=== PATIENT | female | born 1965 | race Caucasian/White ===

== ENCOUNTER 2016-12-12 22:53 | Emergency (ER) | payer BC ==
--- NOTE | 2016-12-12 23:09 | Emergency Department Record ---
History of Present Illness - General Chief Complaint: Numbness Stated Complaint: LT ARM & LT LEG NUMB Time Seen by Provider: 12/12/16 22:55 Source: Patient Mode of Arrival: Wheelchair Limitations: No limitations - History of Present Illness Initial Comments: 51 yo female presents to ED with a CC of bilateral thigh "spasms" and pain that began 30 minutes prior to arrival. Patient also reports numbness to the LUE and LLE. Patient reports that she was getting into bed when her symptoms began. Patient denies focal weakness on examination, change in vision, or change in speech. Patient denies recent illness and denies history of HTN, IDDM , or cardiac disease. Onset/Timin -: Minutes(s) Location: Left leg, Right leg History of same: No Place: Home Severity: Moderate Improves With: None Worsens With: None On Anticoagulants: No Associated Symptoms: Denies other symptoms Treatments Prior to Arrival: None - Adelina Coma Scale Eye Response: (4) Open spontaneously Motor Response: (6) Obeys commands Verbal Response: (5) Oriented Adelina Total: 15 - Related Data Home Medications: Previous Rx's Medication Instructions Recorded Cyclobenzaprine HCl [Flexeril] 10 mg PO TID #30 tablet 07/03/14 Naproxen [Naprosyn] 500 mg PO Q12H #30 tab. 12/13/16 Allergies/Adverse Reactions: Allergies Allergy/AdvReac Type Severity Reaction Status Date / Time No Known Drug Allergies Allergy Verified 07/03/14 09:27 Travel Screening - Travel/Exposure Within Last 30 Days Have you traveled within the last 30 days?: No - Travel/Exposure Within Last Year Have you traveled outside the [place] in the last year?: No - Additonal Travel Details Have you been exposed to anyone with a communicable illness?: No - Travel Symptoms Symptom Screening: None Review of Systems Constitutional: Denies: Chills, Fever, Malaise, Night sweats Eyes: Denies: Eye discharge, Eye pain ENT: Denies: Congestion, Ear pain, Epistaxis Respiratory: Denies: Cough, Dyspnea Cardiovascular: Denies: Chest pain, Dyspnea on exertion Endocrine: Denies: Fatigue, Heat or cold intolerance Gastrointestinal: Denies: Abdominal pain, Nausea, Vomiting Genitourinary: Denies: Incontinence, Retention Musculoskeletal: Reports: Myalgia. Denies: Arthralgia, Back pain, Gout, Joint swelling Skin: Denies: Bruising, Change in color Neurological: Reports: Numbness. Denies: Abnormal gait, Confusion, Headache, Seizure Psychiatric: Denies: Anxiety Hematological/Lymphatic: Denies: Anemia, Blood Clots Past Medical History - SOCIAL HISTORY Smoking Status: Former smoker Alcohol Use: None Drug Use: None - RESPIRATORY Hx Respiratory Disorders: Yes Hx COPD: Yes - CARDIOVASCULAR Hx Cardio Disorders: No - NEURO Hx Neuro Disorders: Yes Hx Headaches: Yes - GI Hx GI Disorders: No - Hx Genitourinary Disorders: Yes Comment:: Excessive Vaginal Bleeding during periods - ENDOCRINE Hx Endocrine Disorders: Yes Hx Thyroid Disease: Yes - MUSCULOSKELETAL Hx Musculoskeletal Disorders: No - PSYCH Hx Psych Problems: No - HEMATOLOGY/ONCOLOGY Hx Hematology/Oncology Disorders: Yes Hx Anemia: Yes (Related to bleeding on periods) Family Medical History Any Significant Family History?: No Hx Cancer: Father *Cancer Comment: bone ca, aunt Breast ca Physical Exam - General General Appearance: Alert, Oriented x3, Cooperative, Moderate distress Limitations: No limitations - Head Head exam: Atraumatic, Normocephalic, Normal inspection Head exam detail: negative: Abrasion, Contusion, Abarca's sign, General tenderness, Hematoma, Laceration - Eye Eye exam: Normal appearance. negative: Conjunctival injection, Periorbital swelling, Periorbital tenderness, Scleral icterus - ENT Ear exam: negative: Auricular hematoma, Auricular trauma Nasal Exam: negative: Active bleeding, Discharge, Dried blood, Foreign body Mouth exam: negative: Drooling, Laceration, Muffled voice, Tongue elevation - Neck Neck exam: Normal inspection. negative: Meningismus, Tenderness - Respiratory Respiratory exam: Normal lung sounds bilaterally. negative: Rales, Respiratory distress, Rhonchi, Stridor - Cardiovascular Cardiovascular Exam: Regular rate, Normal rhythm, Normal heart sounds - GI/Abdominal GI/Abdominal exam: Soft. negative: Rebound, Rigid, Tenderness - Rectal Rectal exam: Deferred - exam: Deferred - Extremities Extremities exam: Normal inspection, Tenderness, Other (TTP along the anterior thighs bilaterally). negative: Calf tenderness, Pedal edema - Back Back exam: Denies: CVA tenderness (R), CVA tenderness (L), Paraspinal tenderness - Neurological Neurological exam: Alert, CN II-XII intact, Oriented X3, Other (EHL strength 5/ 5 and symmetric bilterally, bead filler strength 5/5 and symmetric bilaterally). negative: Motor sensory deficit - Psychiatric Psychiatric exam: Normal affect, Normal mood - Skin Skin exam: Normal color. negative: Abrasion Type of lesion: negative: abrasion Course Vital Signs 12/12/16 22:54 Temperature 97.9 F Pulse Rate 104 H Respiratory 20 Rate Blood Pressure 136/76 Pulse Ox 98 - Reevaluation(s) Reevaluation #1: 12/12/16 23:10 NSR 97 Normal axis, normal intervals Nonspecific ST-T wave changes are present. Reevaluation #2: 12/13/16 00:08 Labs reviewed and are grossly unremarkable for an acute process. Patient is back from CT, reports that she is feeling much better following Valium administration. Patient has no clinical evidence for an acute CVA on examination and NIH stroke scale is 0. Awaiting CTA interpretation. Reevaluation #3: 12/13/16 00:37 CTA Chest/Abdomen/Pelvis: No dissection, Cholelithiasis, diverticulosis, fat containing abdominal wall hernias. Patient reassessed and NIH stroke scale continues to be 0. Patient has ambulated to the bathroom with steady gait and appears stable for discharge at this time. Medical Decision Making - Lab Data Result diagrams: 12/12/16 23:10 12/12/16 23:10 Disposition Disposition: Discharge Clinical Impression: Muscle spasms of lower extremity Qualifiers: Laterality: bilateral Qualified Code(s): M62.838 - Other muscle spasm Disposition: Home, Self-Care Condition: (2) Stable Instructions: Muscle Spasm (ED) Additional Instructions: Return to ED if your symptoms worsen or if you have any concerns. Naprosyn as directed. Follow-up with your family doctor in 1-3 days as directed. Prescriptions: Naproxen [Naprosyn] 500 mg PO Q12H #30 tab.dr Forms: Patient Portal Access Time of Disposition: 00:45 Quality - Quality Measures Quality Measures: N/A - Blood Pressure Screening Does Patient Have Any of the Following: No Blood Pressure Classification: Pre-Hypertensive BP Reading Systolic Measurement: 136 Diastolic Measurement: 76 Screening for High Blood Pressure: < Pre-Hypertensive BP, F/U Documented > [ G8950] Pre-Hypertensive Follow-up Interventions: Referral to alternative/primary care provider.
[2016-12-12 23:15] LABS: BASO % 0.5 % (0-6); EOS % 2.7 % (0-6); GRAN % 55.7 % (47-80); HEMATOCRIT 38.8 % (35.0-47.0); HEMOGLOBIN 13.1 gm/dl (11.6-16.0); LYMPH % 32.8 % (16-45); MEAN CELL VOLUME 84.5 fl (81-97); MEAN CORPUSCULAR HEMOGLOBIN 28.5 pg (27-33); MEAN CORPUSCULAR HGB CONC 33.8 g/dl (32-36); MEAN PLATELET VOLUME 9.6 fl (7.4-10.4); MONO % 8.3 % (0-9); PLATELET COUNT 290 K/uL (130-400); RED BLOOD COUNT 4.59 M/uL (3.80-5.40); RED CELL DISTRIBUTION WIDTH 13.3 % (11.5-14.5); WHITE BLOOD COUNT W/O DIFF 8.6 K/uL (4.2-12.2)
[2016-12-12] MEDS: 0.9 % SODIUM CHLORIDE 1000ML 1,000 ML IV SCH (23:18)
[2016-12-12] MEDS: DIAZEPAM 5 MG/1 ML TUBX IVP ONE (23:19)
[2016-12-12] MEDS: ONDANSETRON HCL IV 4 MG/2 ML VIAL IVP ONE (23:23)
[2016-12-12 23:27] LABS: ALB/GLOB RATIO 1.5 (1.1-1.8); ALKALINE PHOSPHATASE 65 U/L (38-126); ALT/SGPT 40 U/L (9-52); ANION GAP 7.1 (7-16); AST/SGOT 23 U/L (14-36); BILIRUBIN,TOTAL 0.52 mg/dL (0.2-1.3); BLOOD UREA NITROGEN 11 mg/dL (7-17); CARBON DIOXIDE 27.9 mmol/L (22-30); CREATINE PHOSPHOKINASE 113 U/L (30-135); CREATININE 0.7 mg/dL (0.52-1.04); EST GLOMERULAR FILTRATION RATE > 60 ml/min; GLUCOSE,RANDOM 90 mg/dL (70-110); INR 0.92; PROTHROMBIN TIME (PATIENT) 9.9 SECONDS (9.5-12.1); TOTAL PROTEIN 6.7 gm/dL (6.3-8.2)
[2016-12-12 23:39] LABS: CKMB 1.4 ug/L (0-6); TROPONIN I < 0.012 ng/mL (0.00-0.034)
--- NOTE | 2016-12-13 14:20 | CT ANGIOGRAM REPORT ---
EXAM: CTA OF THE CHEST AND ABDOMEN HISTORY: PATIENT HAS NUMBNESS OF THE LEFT ARM AND BOTH LEGS. PATIENT HAS PAIN AND CRAMPING TO THE THIGHS. TECHNIQUE: Serial axial CTA scan of the chest and abdomen was done at 5 mm intervals from the aortic arch to the aortic bifurcation without the use of intravenous contrast. Subsequently serial axial CTA scan of the chest was performed at 2.5 mm intervals from the aortic arch to the aortic bifurcation following the intravenous administration of 100 ml of Omnipaque 350. Comparison: CT scan of the abdomen and pelvis dated 05/13/12 is provided. FINDINGS: The visualized thoracic inlet is unremarkable. The lung windows of the visualized lung ashby demonstrate linear subsegmental atelectasis and/or scarring within the bilateral lower lobes. The visualized heart size and contour is within normal limits. There is no CT evidence of axillary, mediastinal, or hilar lymphadenopathy. Nonspecific subcentimeter lymph nodes are identified within the bilateral axilla. These may be reactive. The chest wall is unremarkable. The liver demonstrates diffuse fatty infiltration. No suspicious hepatic lesions are identified. The size and contour of the liver is within normal limits. The spleen, pancreas, and bilateral adrenal glands are unremarkable. A gallstone is noted within the gallbladder without CT evidence of cholecystitis. There is no CT evidence of hydronephrosis or hydroureter. No renal or ureteral calculi are noted. The contour, caliber, and flow within the thoracic and abdominal aorta are within normal limits. There is no CT evidence of retroperitoneal, pelvic, or inguinal lymphadenopathy. The bowel gas pattern is nonspecific and nonobstructive. Multiple colonic diverticula are noted without CT evidence of diverticulitis. Within the anterior abdominal wall, there is a 3.4 cm umbilical hernia with herniated omental fat. Mild fat stranding is noted within this umbilical hernia suggesting possible mild strangulation. Clinical correlation is recommended. This finding appears similar to the prior CT scan. There is no CT evidence of free intraperitoneal fluid or free intraperitoneal air. Bone windows demonstrate bilateral L5 pars lamina defects with Grade 1 spondylolisthesis at the L5-S1 disk space level. IMPRESSION: 1. NO CT EVIDENCE OF AORTIC STENOSIS, DISSECTION OR ANEURYSM. 2. UMBILICAL HERNIA IS NOTED DISCUSSED ABOVE. POSSIBLE MILD STRANGULATION OF OMENTAL FAT IS NOTED. CLINICAL CORRELATION IS RECOMMENDED. 3. A GALLSTONE IS NOTED WITHOUT CT EVIDENCE OF CHOLECYSTITIS. 4. DIFFUSE HEPATIC STEATOSIS. JOB NUMBER: [id number] [facility]
== END 2016-12-13 00:54 | disposition home or self-care (01) ==
LOC: ER 22:53
DX: M62.838 Other muscle spasm (principal); M79.652 Pain in left thigh; M79.651 Pain in right thigh; R20.0 Anesthesia of skin; R29.898 Other symptoms and signs involving the musculoskeletal system
CPT/HCPCS: 99284 ×2; 96374; 96375; 82550; 85025; 85610; 82553; 84484; 80053; 71275; 74175; 93005; 93010; Q9967; J2405; J3360; J7030

== ENCOUNTER 2017-04-30 09:42 | Emergency (ER) | payer BC ==
--- NOTE | 2017-04-30 09:56 | Emergency Department Record ---
History of Present Illness - General Chief Complaint: Abdominal Pain Stated Complaint: ABD PAIN Time Seen by Provider: 04/30/17 09:52 Source: Patient Mode of Arrival: Ambulatory Limitations: No limitations - History of Present Illness Initial Comments: The patient is here due to upper abdominal pain for 4 hours associated with nausea. She denies any vomiting, fever, diarrhea, or back pain. The patient describes the pain as a sharp crampy pain that waxes and wanes. She has had similar problems in the pat but they always have resolved. The patient's only abdominal surgery is a ELEANOR. MD Complaint: Abdominal pain Onset/Timin -: Hour(s) Location: Epigastric Radiation: None Migration to: No migration Severity: Moderate Quality: Cramping Consistency: Constant Improves With: Nothing Worsens With: Nothing Associated Symptoms: Nausea - Related Data Patient : No Previous Rx's Medication Instructions Recorded Cyclobenzaprine HCl [Flexeril] 10 mg PO TID #30 tablet 07/03/14 Hydrocodone/Acetaminophen [[place] 1 - 2 each PO .EVERY 4-6 HRS PRN 04/30/17 5-325 Tablet] #20 tablet Ondansetron [Zofran Odt] 4 mg SL .Q4-6H PRN #12 tab.rapdis 04/30/17 Sucralfate [Carafate] 1 gm PO QID #28 tablet 04/30/17 Allergies Allergy/AdvReac Type Severity Reaction Status Date / Time No Known Drug Allergies Allergy Verified 04/30/17 09:51 Travel Screening - Travel/Exposure Within Last 30 Days Have you traveled within the last 30 days?: No Review of Systems Constitutional: Denies: Chills, Fever Eyes: Denies: Eye discharge ENT: Denies: Congestion Respiratory: Denies: Cough, Dyspnea Past Medical History - SOCIAL HISTORY Smoking Status: Former smoker Alcohol Use: None Drug Use: None - RESPIRATORY Hx Respiratory Disorders: Yes Hx COPD: Yes - CARDIOVASCULAR Hx Cardio Disorders: No - NEURO Hx Neuro Disorders: Yes Hx Headaches: Yes - GI Hx GI Disorders: Yes Hx Abdominal Pain: Yes - Hx Genitourinary Disorders: No - ENDOCRINE Hx Endocrine Disorders: Yes Hx Thyroid Disease: Yes - MUSCULOSKELETAL Hx Musculoskeletal Disorders: No - PSYCH Hx Psych Problems: No - HEMATOLOGY/ONCOLOGY Hx Hematology/Oncology Disorders: Yes Hx Anemia: Yes Family Medical History Any Significant Family History?: Yes Hx Cancer: Father *Cancer Comment: bone ca, aunt Breast ca Physical Exam - General General Appearance: Alert, Oriented x3, Cooperative, No acute distress - Head Head exam: Atraumatic - Eye Eye exam: Normal appearance, PERRL Pupils: Normal accommodation - Neck Neck exam: Normal inspection, Full ROM. negative: Tenderness - Respiratory Respiratory exam: Normal lung sounds bilaterally. negative: Respiratory distress - Cardiovascular Cardiovascular Exam: Regular rate, Normal rhythm, Normal heart sounds - GI/Abdominal GI/Abdominal exam: Soft, Tenderness (There is tenderness to palpation in the upper abdomen and mildly in the RUQ. The patient is morbidly obese.). negative : Guarding, Pulsatile mass, Rebound, Rigid - Extremities Extremities exam: Normal inspection, Full ROM, Normal capillary refill. negative: Tenderness - Neurological Neurological exam: Alert, Normal gait. negative: Abnormal gait, Motor sensory deficit Course Vital Signs 04/30/17 09:46 Temperature 97.9 F Pulse Rate 107 H Respiratory 20 Rate Blood Pressure 103/82 Pulse Ox 97 - Reevaluation(s) Reevaluation #1: The patient is doing a lot better at this time. She denies any nausea and states her pain is much improved. On exam her abdomen is very soft with only very minimal tenderness. I did explain the lab work and US report and the need for F/U with a General Surgeon. I did discuss the case with Dr. Mancia (GEN SURG ) and he would like to see the patient in the office tomorrow morning at 8am. 04/30/17 12:24 Medical Decision Making - Data Complexity MDM Data: Labs Ordered and/or Reviewed, X-Ray Ordered and/or Reviewed - Lab Data Result diagrams: 04/30/17 10:08 04/30/17 10:08 - Radiology Data Radiology results: Report reviewed (US: 1.3 cm gallstone nonmobile in the neck of the GB. No signs of any acute cholycysitis.) Disposition Disposition: Discharge Clinical Impression: Gallstone (impacted) Disposition: Home, Self-Care Condition: (2) Stable Instructions: Abdominal Pain (ED) Additional Instructions: Please drink plenty of fluids and only eat a very bland diet with no fatty or fried foods. Please see Dr. Mancia tomorrow morning at 8am in his office at [address] [place] [address], [address]. [place]. Return to the ER sooner for any increased pain, vomiting, or fever. Prescriptions: Hydrocodone/Acetaminophen [[place] 5-325 Tablet] 1 - 2 each PO .EVERY 4-6 HRS PRN #20 tablet PRN Reason: Pain Ondansetron [Zofran Odt] 4 mg SL .Q4-6H PRN #12 tab.rapdis PRN Reason: Nausea Sucralfate [Carafate] 1 gm PO QID #28 tablet Forms: Patient Portal Access Time of Disposition: 12:28 Quality - Quality Measures Quality Measures: N/A - Blood Pressure Screening View Details: Yes Does Patient Have Any of the Following: No, Active Dx of HTN Blood Pressure Classification: Hypertensive Reading Systolic Measurement: 132 Diastolic Measurement: 105 Screening for High Blood Pressure: Patient Exclusion, Hx of HTN [G9744]
[2017-04-30] MEDS ORDERED: SODIUM CHLORIDE 0.9% 500 ML IV ONE (09:58)
[2017-04-30] MEDS ORDERED: ONDANSETRON HCL IV 4 MG/2 ML VIAL IV ONE (09:58)
[2017-04-30] MEDS ORDERED: HYDROMORPHONE HCL 1 MG/ML SYRINGE IVP ONE ×2 (09:59→10:16)
[2017-04-30 10:22] LABS: BASO % 0.4 % (0-6); EOS % 2.2 % (0-6); GRAN % 62.7 % (47-80); HEMATOCRIT 42.1 % (35.0-47.0); HEMOGLOBIN 13.8 gm/dl (11.6-16.0); LYMPH % 29.5 % (16-45); MEAN CELL VOLUME 85.2 fl (81-97); MEAN CORPUSCULAR HEMOGLOBIN 27.9 pg (27-33); MEAN CORPUSCULAR HGB CONC 32.8 g/dl (32-36); MEAN PLATELET VOLUME 9.5 fl (7.4-10.4); MONO % 5.2 % (0-9); PLATELET COUNT 315 K/uL (130-400); RED BLOOD COUNT 4.94 M/uL (3.80-5.40); RED CELL DISTRIBUTION WIDTH 13.6 % (11.5-14.5); WHITE BLOOD COUNT W/O DIFF 7.8 K/uL (4.2-12.2)
[2017-04-30 10:37] LABS: BLOOD UREA NITROGEN 11 mg/dL (6-20); CREATININE 0.5 mg/dL (0.5-0.9); EST GLOMERULAR FILTRATION RATE > 60 mL/min
[2017-04-30 10:38] LABS: TOTAL PROTEIN 7.5 g/dL (6.6-8.7)
[2017-04-30 10:40] LABS: GLUCOSE,RANDOM 118 mg/dL (74-109)
[2017-04-30 10:42] LABS: ALBUMIN 4.1 g/dL (4.0-5.0); ALT/SGPT 26 U/L (<33); AST/SGOT 24 U/L (10.0-35.0)
[2017-04-30 10:43] LABS: ALKALINE PHOSPHATASE 85 U/L (35-104); LIPASE 16 U/L (13-60)
[2017-04-30 10:49] LABS: BILIRUBIN,DIRECT < 0.2 mg/dL (0-0.3)
[2017-04-30] MEDS ORDERED: MAGNESIUM HYDROXIDE/AL HYDROX 30 ML, LIDOCAINE VISC 2% 200 MG PO ONE ×2 (10:59)
--- NOTE | 2017-05-01 07:53 | ULTRASOUND REPORT ---
EXAM: ULTRASOUND OF THE ABDOMEN LIMITED HISTORY: UPPER ABDOMINAL PAIN. TECHNIQUE: Ultrasound examination of the right upper quadrant was performed. Comparison: CT angiogram of the abdomen dated 12/12/16. FINDINGS: The liver is homogeneous in echotexture. No gross intra or extrahepatic biliary ductal dilatation with the common hepatic duct measuring 2 mm. There is a nonmobile calculus in the gallbladder neck measuring 1.3 cm in diameter. No gross gallbladder wall thickening or pericholecystic fluid. IMPRESSION: NONMOBILE 1.3 CM CALCULUS WITHIN THE GALLBLADDER NECK WITHOUT GROSS GALLBLADDER WALL THICKENING OR PERICHOLECYSTIC FLUID NOR GALLBLADDER WALL THICKENING. JOB NUMBER: [id number] [facility]
== END 2017-04-30 12:47 | disposition home or self-care (01) ==
LOC: ER 09:42
DX: K80.20 Calculus of gallbladder without cholecystitis without obstruction (principal); R11.0 Nausea
CPT/HCPCS: 76705; 80048; 80076; 83690; 85025; 96374; 96375; 99284; J1170; J2405

== ENCOUNTER 2017-05-06 09:56 | Day surgery (SDC) | payer BC ==
[~2017-05-06 09:56] MED LIST: ACETAMINOPHEN 1,000 MG/100 ML BTL IV ONE; FAMOTIDINE 20MG TABLET PO ONE; MECLIZINE 25 MG TABLET PO ONE; METOCLOPRAMIDE 10 MG TABLET PO ONE
[2017-05-06] MEDS ORDERED: HYDROCODONE/APAP 5/325MG TABLET PO ONE (09:57)
[2017-05-06] MEDS ORDERED: BUPIVACAINE 0.75% W/EPI MPF 30ML VIAL IVP ONE (09:57)
[2017-05-06] MEDS ORDERED: SEVOFLURANE 250 ML INH ONE (14:41)
[2017-05-06] MEDS ORDERED: DEXAMETHASONE 4 MG/ML 1ML VIAL IVP ONE (14:41)
[2017-05-06] MEDS ORDERED: SUGAMMADEX SODIUM 200 MG/2 ML VIAL IV ONE (14:41)
[2017-05-06] MEDS ORDERED: PROPOFOL 10 MG/ML VIAL IV ONE (14:41)
[2017-05-06] MEDS ORDERED: ROCURONIUM BROMIDE 50MG/5ML VIAL IV ONE (14:41)
[2017-05-06] MEDS ORDERED: KETOROLAC 30 MG/ML VIAL IVP ONE (14:41)
[2017-05-06] MEDS ORDERED: ONDANSETRON HCL IV 4 MG/2 ML VIAL IVP ONE (14:41)
--- NOTE | 2017-05-07 09:50 | Operative Note ---
DATE OF SURGERY: 05/06/2017 Surgeon: Murtaza Mancia DO PREOPERATIVE DIAGNOSIS: Cholelithiasis, cholecystitis. POSTOPERATIVE DIAGNOSIS: Cholelithiasis, cholecystitis. OPERATION: Laparoscopic cholecystectomy. Indication: The patient is a 52-year-old female who presented to the clinic with pain in the right subcostal region. Imaging studies did reveal a 1.3 cm stone stuck in the neck of her gallbladder. We did discuss cholecystectomy versus medical management. She desired surgical intervention. Risks include but are not limited to bleeding, infection, ductal injury, possible conversion to open, postoperative bile leak. She understood this fully. PROCEDURE: Therefore, after consent was signed and questions answered, she was taken to the operating room and placed in a supine position. General anesthesia was administered per the department of anesthesia. The patient's abdomen was prepped and draped in the usual sterile fashion. The supraumbilical region was anesthetized with a total of 3 mL of 0.25% Sensorcaine with epinephrine. An incision was made. This was carried down to actually what was a supraumbilical hernia. Clean circumferential fascial edges were obtained. Stay sutures were placed on the fascial edges. Through the hernia, a 10 mm Isabel port was then placed. Adequate pneumoperitoneum was established. Under direct visualization, additional 5 mm epigastric and two 5 mm right subcostal ports were placed. The patient was then rotated into reverse Trendelenburg with rotation to left. The gallbladder was identified. It was lifted anteriorly. Dense omental adhesions were taken down. The hepatocystic triangle was thoroughly dissected out. There was no aberrant anatomy, no posterior ductal structures. The cystic duct and cystic artery were clearly identified. Each one was doubly clipped and cut in a standard fashion. Gallbladder was then taken off the liver bed with the Shai harmonic. Right upper quadrant was rechecked and found to be hemostatic. No bleeding. No bile leak. No bowel injury noted. The patient was leveled out. The pneumoperitoneum was released. All ports were removed. The fascia was closed with 0 Vicryl in a [id number] fashion. The skin of all ports was closed with 4-0 Vicryl. The patient was taken to the recovery room in satisfactory condition. FINDINGS AT THE TIME OF SURGERY: Chronic cholecystitis. CC: Susan QUINTANILLA
== END 2017-05-06 13:15 | disposition home or self-care (01) ==
LOC: SUR 09:56
PROVIDERS: ATTEND Surgery
DX: K80.10 Calculus of gallbladder with chronic cholecystitis without obstruction (principal); K42.9 Umbilical hernia without obstruction or gangrene; E03.9 Hypothyroidism, unspecified; J44.9 Chronic obstructive pulmonary disease, unspecified
CPT/HCPCS: 47562; 49585; 00790; J1885; J2405; J3490 ×2

== ENCOUNTER 2018-03-27 09:19 | Emergency (ER) | payer BC ==
[2018-03-27] MEDS ORDERED: ACETAMINOPHEN 325 MG TAB PO ONE (09:35)
[2018-03-27 09:50] LABS: BASO % 0.6 % (0-6); EOS % 1.2 % (0-6); GRAN % 67.4 % (47-80); HEMATOCRIT 41.3 % (35.0-47.0); HEMOGLOBIN 13.7 gm/dl (11.6-16.0); LYMPH % 23.9 % (16-45); MEAN CELL VOLUME 85.3 fl (81-97); MEAN CORPUSCULAR HEMOGLOBIN 28.3 pg (27-33); MEAN CORPUSCULAR HGB CONC 33.2 g/dl (32-36); MEAN PLATELET VOLUME 9.6 fl (7.4-10.4); MONO % 6.9 % (0-9); PLATELET COUNT 305 K/uL (130-400); RED BLOOD COUNT 4.84 M/uL (3.80-5.40); RED CELL DISTRIBUTION WIDTH 13.5 % (11.5-14.5); WHITE BLOOD COUNT W/O DIFF 8.3 K/uL (4.2-12.2)
[2018-03-27 10:00] LABS: BLOOD UREA NITROGEN 15 mg/dL (6-20); CREATININE 0.6 mg/dL (0.5-0.9); EST GLOMERULAR FILTRATION RATE > 60 mL/min
[2018-03-27 10:01] LABS: TOTAL PROTEIN 6.6 g/dL (6.6-8.7)
[2018-03-27 10:03] LABS: GLUCOSE,RANDOM 106 mg/dL (74-109)
--- NOTE | 2018-03-27 10:04 | Emergency Department Record ---
History of Present Illness - General Chief Complaint: Hypertension Stated Complaint: HIGH BP Time Seen by Provider: 03/27/18 09:29 Source: Patient Mode of Arrival: Ambulatory Limitations: No limitations - History of Present Illness Initial Comments: The patient is here due to not feeling well at work this morning. She began to feel a mild LANDEROS and had some tingling to her finger tips with very mild blurred vision. She then took her BP and noticed it was elevated so she decided to come to the ER. There was no reported CP, SOB, RICHARD, or any weakness or balance issues. Presently she is feeling better. She does have a recent dx of HTN. MD Complaint: Other Onset/Timin -: Hour(s) Timing: Sudden onset History of Same: No History of Trauma: No Improves With: Nothing Worsens With: Nothing - [place] Coma Scale Eye Response: (4) Open spontaneously Motor Response: (6) Obeys commands Verbal Response: (5) Oriented Adelina Total: 15 - Related Data Home Medications Medication Instructions Recorded Confirmed Last Taken Amlodipine Besylate 5 mg PO DAILY 03/27/18 03/27/18 03/27/18 Montelukast Sodium [Singulair] 10 mg PO DAILY 03/27/18 03/27/18 03/27/18 Allergies Allergy/AdvReac Type Severity Reaction Status Date / Time No Known Drug Allergies Allergy Verified 03/27/18 09:27 Travel Screening - Travel/Exposure Within Last 30 Days Have you traveled within the last 30 days?: No Review of Systems Constitutional: Denies: Chills, Fever Eyes: Denies: Eye discharge ENT: Denies: Congestion Respiratory: Denies: Cough Cardiovascular: Denies: Chest pain Past Medical History - SOCIAL HISTORY Smoking Status: Former smoker Alcohol Use: None Drug Use: None - RESPIRATORY Hx Respiratory Disorders: Yes Hx Bronchitis: Yes Hx COPD: Yes (uses inhaler well controlled) Hx Pneumonia: Yes - CARDIOVASCULAR Hx Cardio Disorders: Yes Hx Hypertension: Yes Hx Vascular Disease: Yes - NEURO Hx Neuro Disorders: Yes Hx Headaches: Yes - GI Hx GI Disorders: Yes Hx Abdominal Pain: Yes Hx Nausea/Vomiting: Yes Comment:: with hep c - Hx Genitourinary Disorders: No Comment:: hyst - ENDOCRINE Hx Endocrine Disorders: Yes Hx Thyroid Disease: Yes - MUSCULOSKELETAL Hx Musculoskeletal Disorders: Yes Hx Arthritis: Yes (neck) - PSYCH Hx Psych Problems: No - HEMATOLOGY/ONCOLOGY Hx Hematology/Oncology Disorders: Yes Hx Anemia: Yes Family Medical History Any Significant Family History?: Yes Hx Cancer: Father *Cancer Comment: bone ca, aunt Breast ca Physical Exam - General General Appearance: Alert, Oriented x3, Cooperative, No acute distress - Head Head exam: Atraumatic, Normocephalic, Normal inspection - Eye Eye exam: Normal appearance, PERRL, EOMI - Neck Neck exam: Normal inspection, Full ROM. negative: Tenderness - Respiratory Respiratory exam: Normal lung sounds bilaterally. negative: Respiratory distress - Cardiovascular Cardiovascular Exam: Regular rate, Normal rhythm, Normal heart sounds - GI/Abdominal GI/Abdominal exam: Soft, Normal bowel sounds. negative: Tenderness - Extremities Extremities exam: Normal inspection, Full ROM, Normal capillary refill. negative: Tenderness - Neurological Neurological exam: Alert, Normal gait, Oriented X3, Other (Neg Drift and [place].). negative: Abnormal gait, Altered, Motor sensory deficit - Psychiatric Psychiatric exam: negative: Agitated, Anxious Course Vital Signs 03/27/18 09:24 Temperature 98.4 F Pulse Rate 98 H Respiratory 20 Rate Blood Pressure 145/92 Pulse Ox 97 - Reevaluation(s) Reevaluation #1: The patient is doing very well at this time. She denies any blurred vision or paresthesias or head pain. She is up walking with no problems and feels very ready for home. 03/27/18 10:27 Medical Decision Making - Data Complexity MDM Data: Labs Ordered and/or Reviewed - Lab Data Result diagrams: 03/27/18 09:44 03/27/18 09:44 Lab Results 03/27/18 03/27/18 Range/Units 09:44 09:44 WBC 8.3 (4.2-12.2) K/uL RBC 4.84 (3.80-5.40) M/uL Hgb 13.7 (11.6-16.0) gm/dl Hct 41.3 (35.0-47.0) % MCV 85.3 (81-97) fl MCH 28.3 (27-33) pg MCHC 33.2 (32-36) g/dl RDW 13.5 (11.5-14.5) % Plt Count 305 (130-400) K/uL MPV 9.6 (7.4-10.4) fl Gran % 67.4 (47-80) % Lymphocytes % 23.9 (16-45) % Monocytes % 6.9 (0-9) % Eosinophils % 1.2 (0-6) % Basophils % 0.6 (0-6) % Sodium 142 (136-145) mmol/L Potassium 3.9 (3.4-4.5) mmol/L Chloride 105 (98-107) mmol/L Carbon Dioxide 27.0 (22-29) mmol/L Anion Gap 10.0 (7-16) BUN 15 (6-20) mg/dL Creatinine 0.6 (0.5-0.9) mg/dL Estimated GFR > 60 mL/min Calcium 9.4 (8.6-10.0) mg/dL Total Bilirubin 0.20 (0.2-1.0) mg/dL Total Protein 6.6 (6.6-8.7) g/dL Disposition Disposition: Discharge Clinical Impression: Hx of blurred vision Disposition: Home, Self-Care Condition: (2) Stable Instructions: Hypertension (ED) Additional Instructions: Please continue your regular medicines and please see your family doctor tomorrow or Saturday for recheck. Return to the ER for any worsening issues or any new weakness, numbness, or speech problems. Forms: Patient Portal Access Time of Disposition: 10:28 Quality - Quality Measures Quality Measures: N/A - Blood Pressure Screening View Details: Yes Does Patient Have Any of the Following: Active Dx of HTN Blood Pressure Classification: Hypertensive Reading Systolic Measurement: 133 Diastolic Measurement: 102 Screening for High Blood Pressure: Patient Exclusion, Hx of HTN [G9744]
[2018-03-27 10:06] LABS: ALB/GLOB RATIO 1.5 (1.1-1.8); ALKALINE PHOSPHATASE 83 U/L (35-104); ALT/SGPT 25 U/L (<33); AST/SGOT 18 U/L (10.0-35.0)
== END 2018-03-27 10:48 | disposition home or self-care (01) ==
LOC: ER 09:19
DX: H53.8 Other visual disturbances (principal); I10 Essential (primary) hypertension; R51 Headache; R20.0 Anesthesia of skin; Z87.891 Personal history of nicotine dependence
CPT/HCPCS: 80053; 85025; 99283